=== PATIENT | male | born 1980 | race Caucasian/White ===

== ENCOUNTER 2018-03-23 21:46 | Inpatient (IN) | payer OTHER ==
[~2018-03-23] VITALS: Ht 167.6 cm; Wt 97.1 kg
[2018-03-23] MEDS ORDERED: NALOXONE HCL INJ 0.4 MG/ML AMP ONE (21:55)
[2018-03-23] MEDS ORDERED: SODIUM CHLORIDE 0.9% 1000ML 1,000 ML ONE (21:57)
[2018-03-23] MEDS ORDERED: SODIUM CHLORIDE 0.9% 1000ML 2,000 ML ONE (21:58)
[2018-03-23] MEDS ORDERED: MULTIVITAMINS- 12 INJECTION 10 ML, FOLIC ACID MDV 5 MG, THIAMINE HCL INJ 100 MG in SODI... IV ONE (22:00)
[2018-03-23] MEDS ORDERED: SODIUM CHLORIDE 0.9% 1000ML 1,000 ML IV ONE ×2 (22:00→22:45)
[2018-03-23] MEDS ORDERED: NALOXONE HCL 2MG/2 ML SYRINGE IV ONE (22:00)
[2018-03-23 22:17] LABS: BILIRUBIN,URINE NEGATIVE (NEGATIVE); CLARITY,URINE CLEAR (CLEAR); COLOR,URINE YELLOW (YELLOW); KETONES,URINE NEGATIVE (NEGATIVE); LEUKOCYTE ESTERASE ,URINE NEGATIVE (NEGATIVE); NITRITE,URINE NEGATIVE (NEGATIVE); PROTEIN,URINE DIPSTICK NEGATIVE (NEGATIVE); RBC,URINE 0-5 /HPF (0-5); URINE UROBILINOGEN 0.2 mg/dL (0.2 - 1); WBC,URINE (MAN) 0-5 /HPF (0-5)
[2018-03-23 22:20] LABS: BASOPHILS # (AUTO) 0.1 (0.0-0.1); BASOPHILS % 0.9 % (0.0-1.0); EOSINOPHILS # (AUTO) 0.3 (0.0-0.4); EOSINOPHILS % 3.3 % (0.0-6.0); HEMATOCRIT 43.6 % (38.2-49.6); HEMOGLOBIN 14.9 g/dL (14.0-18.0); MEAN CORPUSCULAR HEMOGLOBIN 31.2 pg (28-32); MEAN CORPUSCULAR HGB CONC 34.2 g/dL (31-35); MEAN CORPUSCULAR VOLUME 91.4 fL (81-99); MONOCYTES # (AUTO) 0.6 (0.2-0.8); MONOCYTES % 7.1 % (4.4-11.3); NEUTROPHILS # (AUTO) 3.2 (2.1-6.9); NEUTROPHILS % 39.2 % (38.7-80.0); PLATELET COUNT 252 x10e3/uL (140-360); RED BLOOD COUNT 4.77 x10e6/uL (4.3-5.7); RED CELL DISTRIBUTION WIDTH 14.6 % (11.7-14.4)
[2018-03-23 22:21] LABS: AMPHETAMINES SCREEN,URINE NEGATIVE (NEGATIVE); BENZODIAZEPINES SCREEN,URINE NEGATIVE (NEGATIVE); PHENCYCLIDINE SCREEN,URINE NEGATIVE (NEGATIVE)
[2018-03-23 22:23] LABS: INR 0.9
[2018-03-23 22:24] LABS: PARTIAL THROMBOPLASTIN TIME 23.7 seconds (23.8-35.5)
[2018-03-23 22:34] LABS: ALANINE AMINOTRANSFERASE 11 IU/L (0-55); ALBUMIN 3.9 g/dL (3.5-5.0); ALBUMIN/GLOBULIN RATIO 1.3 (0.8-2.0); ALKALINE PHOSPHATASE 66 IU/L (40-150); ANION GAP 15.7 mmol/L (8-16); BLOOD UREA NITROGEN 9 mg/dL (7-26); BUN/CREATININE RATIO 11 (6-25); CALCIUM 8.5 mg/dL (8.4-10.2); CARBON DIOXIDE 21 mmol/L (22-29); CHLORIDE 105 mmol/L (98-107); CREATINE KINASE 39 IU/L (30-200); EST GLOMERULAR FILTRATION RATE > 60 ML/MIN (60-); GLUCOSE 152 mg/dL (74-118); POTASSIUM 3.7 mmol/L (3.5-5.1); SODIUM 138 mmol/L (136-145)
[2018-03-23] MEDS ORDERED: SUCCINYLCHOLINE CHLORIDE 20 MG/ML 10ML VIAL ONE (22:50)
[2018-03-23 22:52] LABS: ACETAMINOPHEN < 3 ug/mL (10-30); SALICYLATE < 5.0 mg/dL (0-30)
[2018-03-23] MEDS ORDERED: ACTIVATED CHARCOAL 25 GM/120 ML NG STA (23:21)
[2018-03-23] MEDS ORDERED: GLUCAGON FOR INJ 1 MG VIAL ONE (23:26)
--- NOTE | 2018-03-23 23:29 | Diagnostic Imaging Report ---
History: AMS Comparison studies: None Technique: Axial images were obtained from the skull base to the vertex. Coronal and sagittal reconstructions obtained from the axial data. Dose modulation, iterative reconstruction, and/or weight based adjustment of the mA/kV was utilized to reduce the radiation dose to as low as reasonably achievable. Findings: Scalp/skull: No abnormalities. No fractures, blastic or lytic lesions. Extra-axial spaces: No masses. No fluid collections. Brain sulci: Appropriate for age. Ventricles: Normal in size and configuration. No hydrocephalus. Parenchyma: No abnormal densities. No masses, hemorrhage, acute or chronic cortical vascular insults. Sellar/suprasellar region: No abnormalities Craniocervical junction: Patent foramen magnum. No Chiari one malformation. IMPRESSION: No abnormalities . Signed by: DR Hamilton Robertson M.D. on 03/23/2018 11:26 PM
[2018-03-23] MEDS ORDERED: GLUCAGON FOR INJ 1 MG VIAL IV ONE (23:30)
[2018-03-24] VITALS (68 sets, daily range): BP systolic 80–140; BP diastolic 53–90
--- NOTE | 2018-03-24 00:05 | Diagnostic Imaging Report ---
EXAMINATION: CHEST SINGLE (PORTABLE) INDICATION: Altered mental status COMPARISON: None FINDINGS: TUBES and LINES: Endotracheal tube and NG tube in good position. LUNGS: Lungs are not well inflated. There are bibasilar atelectasis. There is mild prominence of the central pulmonary vasculature, consistent with pulmonary venous congestion. PLEURA: No pleural effusion or pneumothorax. HEART AND MEDIASTINUM: Cardiac size is mildly enlarged. BONES AND SOFT TISSUES: No acute osseous lesion. Soft tissues are unremarkable. UPPER ABDOMEN: No free air under the diaphragm. IMPRESSION: Tubes and lines are in good position. Suboptimal inspiration with atelectasis and vascular congestion. Signed by: Dr. Kiet Rodriguez M.D. on 03/24/2018 12:02 AM
[2018-03-24] MEDS ORDERED: GLUCAGON FOR INJ 1 MG VIAL IV ONE (00:30)
[2018-03-24] MEDS ORDERED: SODIUM CHLORIDE 0.9% 1000ML 1,000 ML IV ONE (01:00)
[2018-03-24] MEDS ORDERED: MIDAZOLAM HCL 2 MG/2 ML VIAL ONE (02:05)
[2018-03-24] MEDS ORDERED: MIDAZOLAM HCL 2 MG/2 ML VIAL IV STA (02:07)
[2018-03-24] MEDS ORDERED: MIDAZOLAM HCL 5 MG/ML VIAL ONE (02:11)
[2018-03-24] MEDS ORDERED: SODIUM CHLORIDE 0.9% 50ML 0 ML ONE (02:12)
[2018-03-24] MEDS ORDERED: MIDAZOLAM HCL 25 MG in SODIUM CHLORIDE 0.9% 50ML 45 ML IV PRN (02:15)
[2018-03-24] MEDS ORDERED: ONDANSETRON HCL INJ 2 MG/ML VIAL IV PRN (02:15)
--- NOTE | 2018-03-24 02:23 | Diagnostic Imaging Report ---
EXAMINATION: CHEST XRAY LINE PLACEMENT INDICATION: PICC line placement COMPARISON: 03/23/2018 FINDINGS: TUBES and LINES: Interval placement of right upper extremity PICC line with tip overlying the atriocaval junction. Endotracheal and NG tube are stable in good position. LUNGS: Lungs are not well inflated. There are bibasilar atelectasis. There is mild prominence of the central pulmonary vasculature, consistent with pulmonary venous congestion. PLEURA: No pleural effusion or pneumothorax. HEART AND MEDIASTINUM: The cardiomediastinal silhouette is unremarkable. BONES AND SOFT TISSUES: No acute osseous lesion. Soft tissues are unremarkable. UPPER ABDOMEN: No free air under the diaphragm. IMPRESSION: Stable chest with new right upper extremity PICC line in good position. Signed by: Dr. Kiet Rodriguez M.D. on 03/24/2018 2:20 AM
[2018-03-24 04:38] LABS: BASOPHILS % 0.6 % (0.0-1.0); EOSINOPHILS # (AUTO) 0.1 (0.0-0.4); EOSINOPHILS % 0.9 % (0.0-6.0); HEMOGLOBIN 12.2 g/dL (14.0-18.0); LYMPHOCYTES # (AUTO) 2.1 (1.0-3.2); LYMPHOCYTES % 30.9 % (18.0-39.1); MEAN CORPUSCULAR HEMOGLOBIN 30.7 pg (28-32); MEAN CORPUSCULAR VOLUME 93.2 fL (81-99); MONOCYTES # (AUTO) 0.5 (0.2-0.8); MONOCYTES % 7.6 % (4.4-11.3); NEUTROPHILS % 59.4 % (38.7-80.0); PLATELET COUNT 187 x10e3/uL (140-360); RED BLOOD COUNT 3.97 x10e6/uL (4.3-5.7); RED CELL DISTRIBUTION WIDTH 14.8 % (11.7-14.4)
[2018-03-24 05:05] LABS: ALANINE AMINOTRANSFERASE 9 IU/L (0-55); ALBUMIN 3.1 g/dL (3.5-5.0); ALBUMIN/GLOBULIN RATIO 1.4 (0.8-2.0); ALKALINE PHOSPHATASE 53 IU/L (40-150); BLOOD UREA NITROGEN 10 mg/dL (7-26); BUN/CREATININE RATIO 15 (6-25); CALCIUM 7.8 mg/dL (8.4-10.2); CARBON DIOXIDE 19 mmol/L (22-29); CHLORIDE 110 mmol/L (98-107); CREATININE, SERUM 0.65 mg/dL (0.72-1.25); EST GLOMERULAR FILTRATION RATE > 60 ML/MIN (60-); GLUCOSE 107 mg/dL (74-118); SODIUM 138 mmol/L (136-145)
[2018-03-24] MEDS: SODIUM CHLORIDE 0.9% 1000ML 1,000 ML IV SCH ×3 (05:26→22:04)
--- NOTE | 2018-03-24 06:42 | Diagnostic Imaging Report ---
EXAMINATION: CHEST SINGLE (PORTABLE) INDICATION: Tube placement COMPARISON: 03/24/2018 at 1:36 AM FINDINGS: TUBES and LINES: Right upper extremity PICC line with tip overlying the atriocaval junction. Endotracheal and NG tube are stable in good position. LUNGS: Lungs are not well inflated. There are bibasilar atelectasis. There is mild prominence of the central pulmonary vasculature, consistent with pulmonary venous congestion. PLEURA: No pleural effusion or pneumothorax. HEART AND MEDIASTINUM: The cardiomediastinal silhouette is unremarkable. BONES AND SOFT TISSUES: No acute osseous lesion. Soft tissues are unremarkable. UPPER ABDOMEN: No free air under the diaphragm. IMPRESSION: Stable chest status post exchange of endotracheal tube Signed by: Dr. Kiet Rodriguez M.D. on 03/24/2018 6:39 AM
--- NOTE | 2018-03-24 12:22 | History and Physical ---
CHIEF COMPLAINT: Patient overdosed on propranolol and Seroquel, the exact quantity is not known. HISTORY OF PRESENT ILLNESS: Mr. Ochoa is a 37-year-old male who was minimally responsive. The girlfriend told the emergency room doctor that he has been drinking heavily and took all his blood pressure medicines, which was propranolol and also took Seroquel. Patient is currently intubated. He was unresponsive, so he was intubated for airway protection. He is opening his eyes and following commands. His Versed has been turned off now. I cannot get detailed history because he just finished sedation. PAST MEDICAL HISTORY: Unknown. Past history per the chart is bipolar, PTSD, and depression with anxiety. FAMILY AND SOCIAL HISTORY: Unknown. Possible history of alcohol use. REVIEW OF SYSTEMS: Unable to elicit any because patient is intubated. PHYSICAL EXAM VITAL SIGNS: Temperature 97.2, pulse of 60, blood pressure 100/63. Initially, blood pressure was on the lower side. HEENT: Head atraumatic, normocephalic. The left pupil is reactive. The right pupil is sluggish. Patient has gag reflex. He is opening his eyes and following commands. NECK: Supple. CHEST: Clear to auscultation bilaterally, intubated. ABDOMEN: Soft and nontender. EXTREMITIES: No peal edema. NEUROLOGIC: He is opening his eyes and following commands. Just got off sedation. IMAGING: His chest x-ray is showing low lung volumes, otherwise normal. ASSESSMENT: Mr. Ochoa a 37-year-old male who presented with possible overdose on propranolol and Seroquel. I am unsure whether he is the same person who I saw at [facility]. Patient is opening his eyes and following commands. Right now, the blood pressure is within normal limits. PLAN 1. I will continue the patient on ventilator support, wean the ventilator as tolerated. 2. Keep the sedation off. Supportive care. Patient did not require any dopamine as heart rate came up. We will continue to follow the patient. Hopefully, we will be able to extubate him soon. Critical care time spent 45 minutes. Job#: [id number] FRANCO
[2018-03-24 13:02] LABS: ABG HCO3 22 mmol/L (23-28); ABG PCO2 38 mmHg (41-51); ABG PH 7.38 (7.31-7.41); ABG PO2 145 mmHg (80-105)
[2018-03-25] VITALS (33 sets, daily range): BP systolic 102–134; BP diastolic 61–84
[2018-03-25 04:41] LABS: BASOPHILS % 0.2 % (0.0-1.0); EOSINOPHILS # (AUTO) 0.1 (0.0-0.4); EOSINOPHILS % 0.8 % (0.0-6.0); HEMATOCRIT 40.5 % (38.2-49.6); HEMOGLOBIN 13.6 g/dL (14.0-18.0); LYMPHOCYTES # (AUTO) 2.6 (1.0-3.2); LYMPHOCYTES % 21.2 % (18.0-39.1); MEAN CORPUSCULAR HEMOGLOBIN 30.8 pg (28-32); MEAN CORPUSCULAR HGB CONC 33.6 g/dL (31-35); MEAN CORPUSCULAR VOLUME 91.8 fL (81-99); MONOCYTES # (AUTO) 1.2 (0.2-0.8); MONOCYTES % 9.6 % (4.4-11.3); NEUTROPHILS # (AUTO) 8.4 (2.1-6.9); NEUTROPHILS % 67.7 % (38.7-80.0); PLATELET COUNT 190 x10e3/uL (140-360); RED BLOOD COUNT 4.41 x10e6/uL (4.3-5.7); RED CELL DISTRIBUTION WIDTH 14.9 % (11.7-14.4)
[2018-03-25 05:05] LABS: ALANINE AMINOTRANSFERASE 7 IU/L (0-55); ALBUMIN 3.4 g/dL (3.5-5.0); ALBUMIN/GLOBULIN RATIO 1.3 (0.8-2.0); ALKALINE PHOSPHATASE 81 IU/L (40-150); ANION GAP 13.6 mmol/L (8-16); BLOOD UREA NITROGEN < 5 mg/dL (7-26); CALCIUM 8.6 mg/dL (8.4-10.2); CARBON DIOXIDE 23 mmol/L (22-29); CHLORIDE 107 mmol/L (98-107); CREATININE, SERUM 0.69 mg/dL (0.72-1.25); EST GLOMERULAR FILTRATION RATE > 60 ML/MIN (60-); GLUCOSE 118 mg/dL (74-118); POTASSIUM 3.6 mmol/L (3.5-5.1); SODIUM 140 mmol/L (136-145)
[2018-03-25 05:13] LABS: BUN/CREATININE RATIO 7 (6-25)
[2018-03-25] MEDS: SODIUM CHLORIDE 0.9% 1000ML 1,000 ML IV SCH ×3 (09:12→18:05)
[2018-03-25] MEDS ORDERED: QUETIAPINE FUMARATE 25 MG TAB PO PRN (10:15)
--- NOTE | 2018-03-25 12:19 | Consultation ---
DATE OF CONSULTATION: PSYCHIATRIC INITIAL CONSULTATION REASON FOR CONSULTATION: For treatment and evaluation of the patient's depression and suicide attempt. HISTORY OF PRESENT ILLNESS: As per the medical record, the patient was found minimally responsive because he was drinking alcohol heavily and took all his blood pressure medications. He was intubated upon admission. Upon evaluation today, the patient was found to be lying on his bed. He is currently not intubated. He is alert, awake, and oriented to situation. He states that he has been feeling very depressed but did not elaborate why. He stated that he overdosed on medications because he was feeling hopeless and helpless. He has not been able to sleep, but his appetite is fair. He denies any hallucinations or suicidal ideation at this time. He agrees to go to the [facility] for continued psychiatric treatment. PAST PSYCHIATRIC HISTORY: The patient stated that he has been diagnosed with bipolar disorder and PTSD and is receiving treatment at the [facility]. He has never attempted any suicide. He drinks alcohol socially. He denies abusing any recreational drugs. FAMILY HISTORY: The patient denies any family history of psychiatric illness. SOCIAL HISTORY: The patient stated that he lives with his girlfriend. CURRENT LABS: WBC 12.42, hemoglobin 13.6, hematocrit 40.5, platelets 190. Sodium 140, potassium 3.6, chloride 107, carbon dioxide 23, BUN less than 5, creatinine 0.69, AST 9, ALT 7, alkaline phosphatase 81. Urine toxicology is negative, but his alcohol level was 166. MENTAL STATUS EXAMINATION: The patient is a young, male who is currently dressed in his hospital attire. He is lying on his bed. He is alert, awake and oriented to situation. His mood is dysphoric and depressed with blunted affect. He denies any suicidal or homicidal ideation at present. He denies any abnormal perception at present. No delusions are elicited. His thought process is goal directed. His insight and judgment are limited. DIAGNOSES/AXIS I 1. Bipolar I disorder, most recent episode depressed, severe, without psychotic features. 2. Alcohol abuse. PLAN OF CARE 1. Add Seroquel 50 mg p.o. nightly. 2. Add Seroquel 25 mg p.o. q.6 h. p.r.n. for agitation. 3. Transfer the patient to [facility] once he is medically cleared. 4. Supportive therapy provided. Job#: [id number] MH
[2018-03-25] MEDS: QUETIAPINE FUMARATE 25 MG TAB PO SCH (21:07)
[2018-03-26] VITALS: BP 115/70
[2018-03-26] MEDS: SODIUM CHLORIDE 0.9% 1000ML 1,000 ML IV SCH ×3 (02:16→20:23)
[2018-03-26 04:00] VITALS: BP 127/71
[2018-03-26 06:50] VITALS: BP 128/73
[2018-03-26 08:00] VITALS: BP 128/73
[2018-03-26] MEDS ORDERED: SEROQUEL25 MG PO (14:30)
[2018-03-26 16:00] VITALS: BP 158/92
[2018-03-26 19:33] VITALS: BP 135/85
[2018-03-26] MEDS: QUETIAPINE FUMARATE 25 MG TAB PO SCH (20:24)
[2018-03-27] VITALS (9 sets, daily range): BP systolic 95–137; BP diastolic 61–85
[2018-03-27] MEDS ORDERED: ACETAMINOPHEN 325 MG TAB PO PRN (18:45)
[2018-03-27] MEDS: QUETIAPINE FUMARATE 25 MG TAB PO SCH (21:08)
[2018-03-28 04:00] VITALS: BP 97/52
[2018-03-28 07:13] VITALS: BP 99/57
[2018-03-28 07:37] VITALS: BP 99/57
[2018-03-28 11:19] VITALS: BP 115/67
[2018-03-28 15:47] VITALS: BP 117/70
[2018-03-28 20:00] VITALS: BP 124/80
[2018-03-28] MEDS: QUETIAPINE FUMARATE 25 MG TAB PO SCH (20:42)
[2018-03-29] VITALS: BP 129/72
[2018-03-29 04:00] VITALS: BP 126/58
[2018-03-29 08:00] VITALS: BP 107/60
[2018-03-29 12:00] VITALS: BP 115/71
[2018-03-29] MEDS: DEPAKOTE DELAYED-RELEASE TAB 500 MG PO SCH ×2 (15:00→20:28)
[2018-03-29 16:00] VITALS: BP 123/66
[2018-03-29] MEDS: GABAPENTIN 300 MG CAP PO SCH (17:00)
[2018-03-29 20:00] VITALS: BP 126/63
[2018-03-29] MEDS: QUETIAPINE FUMARATE 25 MG TAB PO SCH (20:28)
[2018-03-30] VITALS (8 sets, daily range): BP systolic 103–131; BP diastolic 60–79
[2018-03-30] MEDS: GABAPENTIN 300 MG CAP PO SCH ×2 (08:40→16:49)
[2018-03-30] MEDS: DEPAKOTE DELAYED-RELEASE TAB 500 MG PO SCH ×3 (08:40→21:55)
[2018-03-30] MEDS ORDERED: LACTULOSE SYRUP 20 GM/30 ML UDC PO ONE (12:03)
--- NOTE | 2018-03-30 12:49 | Progress Note ---
DATE: PSYCHIATRIC PROGRESS NOTE SUBJECTIVE: Patient evaluated and events noted. INTERVAL HISTORY: Patient is alert, awake, oriented to situation, and he is less depressed and less anxious. He is taking his medications and denies any side effects. He denies any hallucinations and/or any suicidal ideation. He is waiting to be transferred to inpatient psychiatry at the [facility]. I spoke with the manager social work, who stated that she is contacting regularly the [facility] so that the patient can be transferred safely. DIAGNOSIS AXIS I: Bipolar 1 disorder, most recent episode depressed, severe, without psychosis/alcohol abuse. PLAN OF CARE 1. Continue Seroquel. 2. Transfer the patient to [facility] once he is medically clear. Job#: [id number] CHUCHO
[2018-03-30] MEDS: QUETIAPINE FUMARATE 25 MG TAB PO SCH (21:55)
[2018-03-31] VITALS (7 sets, daily range): BP systolic 112–124; BP diastolic 64–81
[2018-03-31] MEDS: DEPAKOTE DELAYED-RELEASE TAB 500 MG PO SCH ×3 (08:01→22:05)
[2018-03-31] MEDS: GABAPENTIN 300 MG CAP PO SCH ×2 (08:01→16:09)
[2018-03-31] MEDS ORDERED: LACTULOSE SYRUP 20 GM/30 ML UDC PO SCH (09:00)
[2018-03-31] MEDS: BISACODYL 5 MG TAB EC PO SCH (16:09)
[2018-03-31] MEDS: DOCUSATE SODIUM LIQD 100 MG/10 ML UDC NG SCH (16:09)
[2018-03-31] MEDS: QUETIAPINE FUMARATE 25 MG TAB PO SCH (22:05)
[2018-04-01] VITALS: BP 107/71
[2018-04-01 07:25] VITALS: BP 100/61
[2018-04-01] MEDS: BISACODYL 5 MG TAB EC PO SCH ×2 (07:30→16:30)
[2018-04-01] MEDS: DEPAKOTE DELAYED-RELEASE TAB 500 MG PO SCH ×3 (09:00→21:50)
[2018-04-01] MEDS: DOCUSATE SODIUM LIQD 100 MG/10 ML UDC NG SCH ×2 (09:00→17:00)
[2018-04-01] MEDS: GABAPENTIN 300 MG CAP PO SCH ×2 (09:00→17:00)
[2018-04-01 11:13] VITALS: BP 131/71
[2018-04-01 11:15] VITALS: BP 131/71
[2018-04-01 15:20] VITALS: BP 137/72
[2018-04-01 20:00] VITALS: BP 126/64
[2018-04-01] MEDS: QUETIAPINE FUMARATE 25 MG TAB PO SCH (21:50)
[2018-04-02] VITALS: BP 121/70
--- NOTE | 2018-04-02 15:07 | Discharge Summary ---
Patient eloped from the hospital. He did not even sign out or sign AMA paper. Patient was on [id number]-one for suicidal attempt. He was admitted with overdose of beta blockers and antipsychotic medications. Patient has history of PTSD and depression. FINAL DIAGNOSES 1. Suicidal overdose. 2. Alcohol intoxication. 3. Posttraumatic stress disorder and depression. 4. Mediastinal mass. Mr. Ochoa is a 37-year-old male who was admitted on March 24, 2018, as he was unresponsive and he overdosed on antipsychotic medications and beta blockers. Patient was extubated once he was more awake. Psychiatry was consulted, and they recommended pbk-xm-og-one observation and patient was deemed unsafe to be discharged. He was in the hospital with rro-jy-hk-one sitter, and the plan was to transfer him to [facility] as his benefits were from [facility]. However, the patient this morning escaped and eloped from the hospital without the nurse knowing about it, and police were called. No prescription was given as patient eloped from the hospital. RACHEL MOREIRA MD Job#: [id number] EV
--- OUTSIDE RECORDS SUMMARY | 2018-04-07 09:15 | XMS REPORT ---
Author Author [facility] Address Unknown Phone Unavailable Care Team Providers Care Projector Operator Name Role Phone RACHEL MOREIRA Unavailable Unavailable Noe ORTEGA Unavailable Unavailable Payers Payer Name Policy Type Policy Number Effective Date Expiration Date Problems This patient has no known problems. Allergies, Adverse Reactions, Alerts Allergy Name Allergy Type Status Severity Reaction(s) Onset Date Inactive Date Treating Clinician Comments No Known Allergies DA Active U 2018-02-05 00:00:00 Medications This patient has no known medications. Results Test Description Test Time Test Comments Text Results Atomic Results Result Comments CHEST SINGLE (PORTABLE) 2018-03-24 06:38:00 [place] [address] Patient Name: MAXIMO KHALIL MR #: [id number] : 1980 Age/Sex: 37/M Req #: [id number] Adm Physician: RACHEL MOREIRA MD Ordered by: RACHEL MOREIRA MD Report #: [id number] Location: ICU Room/Bed: ICU 194 Procedure: [id number] DX/CHEST SINGLE (PORTABLE) Exam Date: 03/24/18 Exam Time: 0545 REPORT STATUS: Signed EXAMINATION: CHEST SINGLE (PORTABLE) INDICATION: Tube placement COMPARISON: 03/24/2018 at 1:36 AM FINDINGS: TUBES and LINES: Right upper extremity PICC line with tip overlying the atriocaval junction. Endotracheal and NG tube are stable in good position. LUNGS: Lungs are not well inflated. There are bibasilar atelectasis. There is mild prominence of the central pulmonary vasculature, consistent with pulmonary venous congestion. PLEURA: No pleural effusion or pneumothorax. HEART AND MEDIASTINUM: The cardiomediastinal silhouette is unremarkable. BONES AND SOFT TISSUES: No acute osseous lesion. Soft tissues are unremarkable. UPPER ABDOMEN: No free air under the diaphragm. IMPRESSION: Stable chest status p ost exchange of endotracheal tube Signed by: Dr. Kiet Rodriguez M.D. on 03/24/2018 6:39 AM Dictated By: KIET THOMSON MD 8 Transcribed By: BEBE on 03/24/18638 COPY TO: RACHEL MOREIRA MD CHEST XRAY LINE PLACEMENT 2018-03-24 02:19:00 [place] [address] Patient Name: MAXIMO KHALIL MR #: [id number] : 1980 Age/Sex: 37/M Req #: [id number] Adm Physician: Ordered by: YADY ORTEGA MD Report #: [id number] Location: ER Room/Bed: Procedure: [id number] DX/CHEST XRAY LINE PLACEMENT Exam Date: 10/02/18 Exam Time: 0145 REPORT STATUS: Signed EXAMINATION: CHEST XRAY LINE PLACEMENT INDICATION: PICC line placement COMPARISON: 03/23/2018 FINDINGS: TUBES and LINES: Interval placement of right upper extremity PICC line with tip overlying the atriocaval junction. Endotracheal and NG tube are stable in good position. LUNGS: Lungs are not well inflated. There are bibasilar atelectasis. There is mild prominence of the central pulmonary vasculature, consistent with pulmonary venous congestion. PLEURA: No pleural effusion or pneumothorax. HEART AND MEDIASTINUM: The cardiomediastinal silhouette is unremarkable. BONES AND SOFT TISSUES: No acute osseous lesion. Soft tissues are unremarkable. UPPER ABDOMEN: No free air under the diaphragm. IMPRESSION: Stable chest with new right upper extremity PICC line in good position. Signed by: Dr. Kiet Rodriguez M.D. on 03/24/2018 2:20 AM Dictated By: KIET THOMSON MD 9 Transcribed By: BEBE on 03/24/18219 COPY TO: YADY ORTEGA MD CHEST SINGLE (PORTABLE) 2018-03-24 00:01:00 [place] [address] Patient Name: MAXIMO KHALIL MR #: [id number] : 1980 Age/Sex: 37/M Req #: [id number] Adm Physician: Ordered by: YADY ORTEGA MD Report #: [id number] Location: ER Room/Bed: Procedure: [id number] DX/CHEST SINGLE (PORTABLE) Exam Date: 03/23/18 Exam Time: 8025 REPORT STATUS: Signed EXAMINATION: CHEST SINGLE (PORTABLE) INDICATION: Altered mental status COMPARISON: None FINDINGS: TUBES and LINES: Endotracheal tube and NG tube in good position. LUNGS: Lungs are not well inflated. There are bibasilar atelectasis. There is mild prominence of the central pulmonary vasculature, consistent with pulmonary venous congestion. PLEURA: No pleural effusion or pneumothorax. HEART AND MEDIASTINUM: Cardiac size is mildly enlarged. BONES AND SOFT TISSUES: No acute osseous lesion. Soft tissues are unremarkable. UPPER ABDOMEN: No free air under the diaphragm. IMPRESSION: Tubes and lines are in good position. Suboptimal inspiration with atelectasis and vascular congestion. Signed by: Dr. Kiet Rodriguez M.D. on 03/24/2018 12:02 AM Dictated By: KIET THOMSON MD Transcribed By: BEBE on 03/24/181 COPY TO: YADY ORTEGA MD CT BRAIN WO 2018-03-23 23:24:00 [place] [address] Patient Name: MAXIMO KHALIL MR #: [id number] : 1980 Age/Sex: 37/M Req #: [id number] Adm Physician: Ordered by: YADY ORTEGA MD Report #: [id number] Location: ER Room/Bed: Procedure: [id number] CT/CT BRAIN WO Exam Date: 03/23/18 Exam Time: 2311 REPORT STATUS: Signed History: AMS Comparison studies: None Technique: Axial images were obtained from the skull base to the vertex. Coronal and sagittal reconstructions obtained from the axial data. Dose modulation, iterative reconstruction, and/or weight based adjustment of the mA/kV was utilized to reduce the radiation dose to as low as reasonably achievable. Findings: Scalp/skull: No abnormalities. No fractures, blastic or lytic lesions. Extra-axial spaces: No masses. No fluid collections. Brain sulci: Appropriate for age. Ventricles: Normal in size and configuration. No hydrocephalus. Parenchyma: No abnormal densities. No masses, hemorrhage, acute or chronic cortical vascular insults. Sellar/suprasellar region: No abnormalities Craniocervical junction: Patent foramen magnum. No Chiari one malformation. IMPRESSION: No abnormalities . Signed by: DR Hamilton Robertson M.D. on 03/23/2018 11:26 PM Dictated By: HAMILTON MEDINA MD 25 Transcribed By: BEBE on 03/23/182325 COPY TO: YADY ORTEGA MD CT ABDOMEN/PELVIS W [place] [address] Patient Name: MAXIMO KHALIL MR #: [id number] : 1980 Age/Sex: 36/M Req #: [id number] Adm Physician: Ordered by: YADY ORTEGA MD Report #: [id number] Location: ER Room/Bed: Procedure: [id number] CT/CT ABDOMEN/PELVIS W Exam Date: 05/05/17 Exam Time: 141 REPORT STATUS: Signed EXAM: CT Abdomen and Pelvis WITH contrast INDICATION: Left lower quadrant pain, blood in stool COMPARISON: None. TECHNIQUE: Abdomen and pelvis were scanned utilizing a multidetector helical scanner from the lung base to the pubic symphysis after administration of IV contrast. Coronal and sagittal reformations were obtained. Routine protocol was performed. Scan was performed when during portal venous phase. IV CONTRAST: 100 mL of Isovue-370 ORAL CONTRAST: Gastrografin RADIATION DOSE: Total DLP: 753.78 mGy*cm Estimated effective dose: (DLP x 0.015 x size factor) mSv COMPLICATIONS: None FINDINGS: LINES and TUBES: None. LOWER THORAX: Unremarkable HEPATOBILIARY: No focal hepatic lesions. No biliary ductal dilation. GALLBLADDER: No radio-opaque stones or sludge. No wall thickening. SPLEEN: No splenomegaly. PANCREAS: No focal masses or ductal dilatation. ADRENALS: No adrenal nodules KIDNEYS/URETERS: Kidneys enhance symmetrically. No hydronephrosis. No cystic or solid mass lesions. No stones. GI TRACT: No abnormal distention, wall thickening, or evidence of bowel obstruction. There are diverticula within the colon without evidence of diverticulitis. Appendix is normal. PELVIC ORGANS/BLADDER: Unremarkable. LYMPH NODES: No lymphadenopathy. VESSELS: Unremarkable. PERITONEUM / RETROPERITONEUM: No free air or fluid. BONES: Unremarkable. SOFT TISSUES: Unremarkable. IMPRESSION: 1. No evidence of acute intra-abdominal or pelvic abnormality. Signed by: Dr. Kiet Rodriguez M.D. on 05/05/2017 2:44 AM Dictated By: KIET THOMSON MD 3 Transcribed By: BEBE on 05/05/17243 COPY TO: YADY ORTEGA MD
== END 2018-04-02 06:40 | disposition left against medical advice (07) | DRG 917 ==
LOC: ER 21:46 → ERHOLD 03-24 02:24 → ICU 03-24 02:45 → MED/SURG2 03-25 18:31
PROVIDERS: ADMIT Internal Medicine; ATTEND Internal Medicine
PROC: 0BH17EZ Insertion of Endotracheal Airway into Trachea, Via Natural or Artificial Opening (ICD-10-PCS; principal; 2018-03-24)
PROC: 5A1935Z Respiratory Ventilation, Less than 24 Consecutive Hours (ICD-10-PCS; 2018-03-24)
DX: T44.7X2A Poisoning by beta-adrenoreceptor antagonists, intentional self-harm, initial encounter (principal); J98.59 Other diseases of mediastinum, not elsewhere classified; F31.4 Bipolar disorder, current episode depressed, severe, without psychotic features; F10.129 Alcohol abuse with intoxication, unspecified; Y90.6 Blood alcohol level of 120-199 mg/100 ml; T43.592A Poisoning by other antipsychotics and neuroleptics, intentional self-harm, initial encounter; F32.9 Major depressive disorder, single episode, unspecified; F43.10 Post-traumatic stress disorder, unspecified
CPT/HCPCS: 31500; 36415; 36569; 36600; 51700; 70450; 71045; 80053; 80307; 80320; 80329; 81001; 82550; 82553; 82805; 84484; 85025; 85610; 85730; 93005; 94002; 94003; 96374; 99285; J0330; J1610; J2250; J2310; J3411; J7030